=== PATIENT | female | born 1990 | race Caucasian/White ===

== ENCOUNTER 2016-06-03 16:14 | Outpatient (CLI) | payer BC ==
[~2016-06-03] VITALS: Ht 162.6 cm; Wt 81.4 kg
[2016-06-03 16:15] VITALS: BP 130/73; PULSE 105; TEMP 98.1
[2016-06-03 16:21] VITALS: BP 130/73; PULSE 105; TEMP 98.1
[2016-06-03 16:58] VITALS: BP 105/64; PULSE 105
== END 2016-06-03 17:03 | disposition home or self-care (01) ==
LOC: LDRO 16:14
DX: O47.1 False labor at or after 37 completed weeks of gestation (principal); O99.333 Smoking (tobacco) complicating pregnancy, third trimester; F17.210 Nicotine dependence, cigarettes, uncomplicated; Z3A.38 38 weeks gestation of pregnancy

== ENCOUNTER 2016-06-12 07:15 | Inpatient (IN) | payer BC ==
[~2016-06-12] VITALS: Ht 162.6 cm; Wt 80.9 kg
[2016-06-12] VITALS (51 sets, daily range): BP systolic 98–133; BP diastolic 54–90; PULSE 62–104; TEMP 97.8–99.1
[2016-06-12] MEDS ORDERED: NORCO 325 MG-51 TAB PO (07:28)
[2016-06-12 08:57] LABS: BASO % 0.2 % (0.0-2.0); EOS # 0.1 (0.0-0.7); EOS % 0.6 % (0-4.0); GRAN # 10.1 (1.4-6.5); LYMPH # 1.7 (1.2-3.4); LYMPH % 13.6 % (20.0-51.0); MEAN CELL VOLUME 85 fl (80.0-100.0); MEAN CORPUSCULAR HGB CONC 35 g/dl (33.0-37.0); MEAN PLATELET VOLUME 11.2 fl (7.4-10.4); MONO # 0.7 (0.1-0.6); MONO % 5.1 % (1.7-9.3); PLATELET COUNT 173 K/mm3 (130-400); RED BLOOD COUNT 3.96 M/mm3 (4.10-5.30); REDCELL DISTRIBUTION WIDTH-CV 12.7 % (11.5-14.5); WHITE BLOOD COUNT 12.7 K/mm3 (4.8-10.8)
[2016-06-12 08:58] LABS: HEMATOCRIT 33.7 % (37.0-47.0); HEMOGLOBIN 11.7 g/dl (12.5-16.0); MEAN CORPUSCULAR HEMOGLOBIN 30 pg (27.0-31.0)
[2016-06-13 02:00] VITALS: BP 117/51; PULSE 65; TEMP 98.4
[2016-06-13 05:07] VITALS: BP 113/65; PULSE 67; TEMP 97.7
[2016-06-13] MEDS ORDERED: IBU800 M1 PO (07:25)
[2016-06-13] MEDS ORDERED: NORCO 325 MG-51 TAB PO (07:26)
[2016-06-13 07:44] VITALS: BP 119/75; PULSE 68; TEMP 97.2
[2016-06-13 16:49] VITALS: BP 108/62; PULSE 66; TEMP 97.8
[2016-06-13 20:00] VITALS: BP 113/71; PULSE 71; TEMP 97.6
[2016-06-14 07:15] VITALS: BP 103/69; PULSE 58; TEMP 97.4
== END 2016-06-14 15:00 | disposition home or self-care (01) | DRG 775 ==
LOC: LDRO 07:15 → OB 07:30 → LDR 07:30 → OB 23:31
PROVIDERS: Obstetrics & Gynecology
PROC: 10E0XZZ Delivery of Products of Conception, External Approach (ICD-10-PCS; principal; 2016-06-12)
PROC: 0HQ9XZZ Repair Perineum Skin, External Approach (ICD-10-PCS; 2016-06-12)
DX: O48.0 Post-term pregnancy (principal); O34.211 Maternal care for low transverse scar from previous cesarean delivery; N85.8 Other specified noninflammatory disorders of uterus; O99.824 Streptococcus B carrier state complicating childbirth; O70.0 First degree perineal laceration during delivery; O99.334 Smoking (tobacco) complicating childbirth; F17.210 Nicotine dependence, cigarettes, uncomplicated; O69.81X0 Labor and delivery complicated by cord around neck, without compression, not applicable or unspecified; Z3A.40 40 weeks gestation of pregnancy; Z37.0 Single live birth
CPT/HCPCS: J2405; J2540; J2590; J7120

== ENCOUNTER 2017-11-25 13:43 | Inpatient (IN) | payer MEDICAID ==
[~2017-11-25] VITALS: Ht 167.6 cm; Wt 84.5 kg
[2017-11-25] VITALS (22 sets, daily range): BP systolic 103–138; BP diastolic 57–79; PULSE 71–103; TEMP 97.5–98.4
[~2017-11-25 13:43] MED LIST: IBU800 M1 PO; NORCO 325 MG-51 TAB PO
[2017-11-25] MEDS ORDERED: PRENATAL 191 TAB PO (14:06)
[2017-11-25] MEDS ORDERED: CALCIUM CARBON650 M2 (14:07)
[2017-11-25 14:28] LABS: BASO % 0.2 % (0.0-2.0); EOS # 0.1 (0.0-0.7); EOS % 0.7 % (0-4.0); GRAN # 7.4 (1.4-6.5); GRAN % 77.2 % (42.2-75.2); HEMOGLOBIN 12.2 g/dl (12.5-16.0); LYMPH # 1.5 (1.2-3.4); LYMPH % 16.1 % (20.0-51.0); MEAN CELL VOLUME 85 fl (80.0-100.0); MEAN CORPUSCULAR HEMOGLOBIN 29 pg (27.0-31.0); MEAN CORPUSCULAR HGB CONC 35 g/dl (33.0-37.0); MEAN PLATELET VOLUME 11.3 fl (7.4-10.4); MONO # 0.5 (0.1-0.6); MONO % 5.5 % (1.7-9.3); PLATELET COUNT 168 K/mm3 (130-400); RED BLOOD COUNT 4.16 M/mm3 (4.10-5.30); REDCELL DISTRIBUTION WIDTH-CV 14.7 % (11.5-14.5)
[2017-11-25 14:35] LABS: HEMATOCRIT 35.3 % (37.0-47.0)
[2017-11-25 16:38] LABS: TRICYCLIC ANTIDEPRESS URINE NEGATIVE
[2017-11-26 00:05] VITALS: BP 113/62; PULSE 73; TEMP 97.9
[2017-11-26] MEDS ORDERED: MOTRIN 800800 MG/TAB PO (07:31)
[2017-11-26 07:56] VITALS: BP 120/81; PULSE 63; TEMP 97.9
[2017-11-26 16:11] VITALS: BP 129/37; PULSE 57; TEMP 98.1
== END 2017-11-26 19:40 | disposition home or self-care (01) | DRG 775 ==
LOC: LDRO 13:43 → OB 14:15 → LDR 14:15 → OB 21:30
PROVIDERS: Obstetrics & Gynecology
PROC: 10E0XZZ Delivery of Products of Conception, External Approach (ICD-10-PCS; principal; 2017-11-25)
DX: O34.211 Maternal care for low transverse scar from previous cesarean delivery (principal); Z3A.38 38 weeks gestation of pregnancy; Z37.0 Single live birth; O77.0 Labor and delivery complicated by meconium in amniotic fluid
CPT/HCPCS: J2590; J2795; J7120

== ENCOUNTER 2021-03-07 13:54 | Outpatient (CLI) | payer BC, MEDICAID ==
[~2021-03-07 13:54] MED LIST changes: +CALCIUM CARBON650 M2; +MOTRIN 800800 MG/TAB PO; +PRENATAL 191 TAB PO
[2021-03-07] MEDS ORDERED: VITAMIN D 50,1.25 MG PO (13:58)
[2021-03-07] MEDS ORDERED: VITAMINC1000TA (13:58)
[2021-03-07] MEDS ORDERED: B-12 250 MCG (13:59)
[2021-03-07] MEDS ORDERED: MAGNESIUM200 MG PO (13:59)
[2021-03-07 14:00] VITALS: BP 125/72; PULSE 101; TEMP 98.1
[2021-03-07 14:40] VITALS: PULSE 78
== END 2021-03-07 15:00 | disposition home or self-care (01) ==
LOC: LDRO 13:54
DX: O62.9 Abnormality of forces of labor, unspecified (principal); Z3A.00 Weeks of gestation of pregnancy not specified

== ENCOUNTER 2021-03-08 06:45 | Inpatient (IN) | payer BC, MEDICAID ==
[~2021-03-08] VITALS: Ht 162.6 cm; Wt 93.6 kg
[~2021-03-08 06:45] MED LIST changes: +B-12 250 MCG; +MAGNESIUM200 MG PO; +VITAMIN D 50,1.25 MG PO; +VITAMINC1000TA
[2021-03-13] VITALS (40 sets, daily range): BP systolic 93–132; BP diastolic 6–78; PULSE 56–104; TEMP 97.3–98.3
--- NOTE | 2021-03-13 06:30 | NUR ---
0630-, 40.0, scheduled induction ambulates to LDR6 with spouse. Oriented to room. Changed into gown. EFM/TOCO explained and applied. Patient denies any LOF,VB, regular contractions, or decreased movement. Assessments completed, consents explained and signed. Plan of care discussed, patient veralizes understanding. 0700-IV started per KOKI Robledo. Blood obtained for labs. IV fluids started. 0716- at bedside assessing FHR and patient. SVE /-2. AROM. Plan of care discussed. 0719-Pitocin discussed with patient, patient verbalizes understanding. Pitocin started at 2 mu per protocol.
[2021-03-13] MEDS ORDERED: MAGNESIUM GLUC500 MG (07:08)
[2021-03-13] MEDS ORDERED: VITAMIN D 400400 IU PO (07:09)
[2021-03-13] MEDS ORDERED: VITAMIN B COMPL1 SGL PO (07:09)
[2021-03-13] MEDS ORDERED: VITAMIN C500 MG PO (07:09)
[2021-03-13] MEDS ORDERED: PRENATAL TABLET PO (07:10)
[2021-03-13] MEDS ORDERED: GUAIFENESIN DA473 ML (07:13)
[2021-03-13 07:53] LABS: BASO % 0.3 % (0.0-2.0); EOS # 0.1 K/mm3 (0.0-0.7); EOS % 1.4 % (0-4.0); GRAN # 5.4 K/mm3 (1.4-6.5); GRAN % 68.6 % (42.2-75.2); HEMOGLOBIN 12.5 g/dl (12.5-16.0); LYMPH # 1.8 K/mm3 (1.2-3.4); LYMPH % 22.8 % (20.0-51.0); MEAN CELL VOLUME 89 fl (80.0-100.0); MEAN CORPUSCULAR HEMOGLOBIN 31 pg (27.0-31.0); MEAN CORPUSCULAR HGB CONC 35 g/dl (33.0-37.0); MEAN PLATELET VOLUME 11.7 fl (7.4-10.4); MONO # 0.5 K/mm3 (0.1-0.6); MONO % 6.6 % (1.7-9.3); PLATELET COUNT 196 K/mm3 (130-400); RED BLOOD COUNT 4.04 M/mm3 (4.10-5.30); REDCELL DISTRIBUTION WIDTH-CV 13.2 % (11.5-14.5)
[2021-03-13 08:03] LABS: HEMATOCRIT 35.9 % (37.0-47.0)
--- NOTE | 2021-03-13 09:00 | NUR ---
0900-Patient got up to void. Patient currently standing by bed. Difficulty tracing contractions. This RN at bedside adjusting TOCO. 0915-Difficulty tracing contractions due to maternal position. RN at bedside adjusting TOCO. 0925-Patient requesting epidural. WON Stauffer at nurses station and notified. 30-Patient positioned for epidural. IV bolus started. 0935-WON Stauffer at bedside discussing epidural with patient. Patient verbalizes understanding. Difficulty tracing FHR due to maternal position. 0942-Single dose given at this time. Patient tolerates well with no adverse reactions. 0945-Patient repositioned in bed. EFM/TOCO adjusted at this time. Plan of care and safety precautions discussed with patient. Patient verbalizes understanding.
--- NOTE | 2021-03-13 11:15 | NUR ---
1115-Difficulty tracing contractions due to maternal position. RN at bedside adjusting TOCO.
--- NOTE | 2021-03-13 14:15 | NUR ---
1415-Difficulty tracing contractions due to maternal position. RN at bedside adjusting TOCO and repositioning patient.
--- NOTE | 2021-03-13 14:40 | NUR ---
1440-Recurrent variables noted. Venkat, RN at bedside repositioning patient. 1445-SVE per Venkat, RN /+2. Patient prepped for vaginal delivery. 1450-Jack cath removed. Dr. Davis at bedside. 1458-Patient pushes with contractions. 1459-Spontaneous vaginal delivery of viable female . Cord and clamped x2. Cord cut by KOKI Navarrete. Infant to mother's abdomen. KOKI Morales assumes care of infant. 1502-Spontaneous delivery of intact placenta. Fundal massage completed, firm. Pitocin bolus started per protocol. Perineum intact, ice pack applied. Plan of care discussed, patient verbalizes understanding.
[2021-03-14] MEDS ORDERED: PERCOCET 325 MG1 TA2 PO (07:21)
[2021-03-14] MEDS ORDERED: MOTRIN 800800 MG/TAB PO (07:21)
[2021-03-14 08:10] VITALS: BP 107/63; PULSE 71; TEMP 97.8
--- NOTE | 2021-03-14 09:18 | NUR ---
Initial visit; Parents thanked Radial Drill Operator for offering congratulations and God's blessings to their family for the of their daughter. Radial Drill Operator thanked family for choosing [facility].
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
[2021-03-14 12:00] VITALS: BP 119/73; PULSE 73; TEMP 97.8
== END 2021-03-14 16:10 | disposition home or self-care (01) | DRG 807 ==
LOC: LDR 03-13 06:16 → OB 03-13 06:16 → LDR 03-13 06:45 → OB 03-14 05:00
PROVIDERS: ADMIT Obstetrics & Gynecology
PROC: 10E0XZZ Delivery of Products of Conception, External Approach (ICD-10-PCS; principal; 2021-03-13)
PROC: 10907ZC Drainage of Amniotic Fluid, Therapeutic from Products of Conception, Via Natural or Artificial Opening (ICD-10-PCS; 2021-03-13)
PROC: 3E033VJ Introduction of Other Hormone into Peripheral Vein, Percutaneous Approach (ICD-10-PCS; 2021-03-13)
DX: O99.824 Streptococcus B carrier state complicating childbirth (principal); Z37.0 Single live birth; O34.211 Maternal care for low transverse scar from previous cesarean delivery; O99.344 Other mental disorders complicating childbirth; F32.A Depression, unspecified; F41.9 Anxiety disorder, unspecified; Z3A.40 40 weeks gestation of pregnancy
CPT/HCPCS: J2405; J2540; J2590; J2795; J7120